=== PATIENT | female | born 2000 | race Two or more races ===

== ENCOUNTER 2023-07-06 22:57 | Emergency (ER) | payer BC, OTHER ==
[~2023-07-06] VITALS: Ht 160 cm; Wt 68.0 kg
[2023-07-07 01:50] VITALS: BP 142/85; PULSE 90; RESP 18; O2SAT 99
[2023-07-07] MEDS: KETOROLAC TROMETH 60MG/2ML VIAL IM ONE (02:44)
[2023-07-07] MEDS ORDERED: IBUP-1456 PO (02:45)
[2023-07-07] MEDS ORDERED: CYCL-837 PO (02:45)
== END 2023-07-07 04:33 | disposition home or self-care (01) ==
LOC: ER 22:57
DX: S39.012A Strain of muscle, fascia and tendon of lower back, initial encounter (principal); Z79.899 Other long term (current) drug therapy; X58.XXXA Exposure to other specified factors, initial encounter; Y93.89 Activity, other specified; Y92.89 Other specified places as the place of occurrence of the external cause; Y99.8 Other external cause status
CPT/HCPCS: 72100; 96372; 99283; J1885